=== PATIENT | male | born 1995 | race Asian ===

== ENCOUNTER 2018-12-10 18:06 | Emergency (ER) | payer OTHER ==
[~2018-12-10] VITALS: Ht 162.6 cm; Wt 76.2 kg
[2018-12-10 18:06] VITALS: BP_SYST 154
--- NOTE | 2018-12-10 18:06 | NUR ---
BROUGHT BACK TO BED #7 AND TRIAGED. REPORT GIVEN TO RORY
--- NOTE | 2018-12-10 18:10 | NUR ---
Patient to ER bed 7 for evaluation.
--- NOTE | 2018-12-10 18:20 | NUR ---
Patient to ER via triage via wheelchair for evaluation of right foot/ankle pain after being hit by forklift earlier today. Patient reports inability to stand due to pain. Patient is awake, alert and oriented in no acute distress, vital signs stable, respirations even and unlabored, skin warm and dry to touch. Awaiting evaluation by ER MD, will continue to observe and assess.
--- NOTE | 2018-12-10 18:25 | NUR ---
ER at bedside examining patient.
--- NOTE | 2018-12-10 18:45 | NUR ---
X-ray at bedside for films.
--- NOTE | 2018-12-10 19:15 | NUR ---
Dr Chaves at bedside speaking with patient/family regarding results and plan of care, questions answered by Dr Chaves.
[2018-12-10 19:45] VITALS: BP_SYST 140
[2018-12-10] MEDS ORDERED: KETOROLAC TROMETHAMINE 60 MG/2 ML VIAL IM ONE (19:45)
--- NOTE | 2018-12-10 19:45 | NUR ---
Patient given written and verbal discharge instructions and verbalizes understanding. ER MD discussed with patient the results and treatment provided. Patient in stable condition. ID arm band removed. Rx of Naprosyn given. Patient educated on pain management and to follow up with PMD. Pain Scale 0. Opportunity for questions provided and answered. Medication side effect fact sheet provided. Patient left ER in no acute distress, able to ambulate without difficulty using crutches with slow, steady gait with family at his side. No adverse reaction noted to medication.
== END 2018-12-10 19:45 | disposition home or self-care (01) ==
LOC: SED 18:06
DX: S90.31XA Contusion of right foot, initial encounter (principal); R03.0 Elevated blood-pressure reading, without diagnosis of hypertension; W24.0XXA Contact with lifting devices, not elsewhere classified, initial encounter; Y93.89 Activity, other specified; Y92.89 Other specified places as the place of occurrence of the external cause; Y99.8 Other external cause status
CPT/HCPCS: 73610; 73630; 96372; 99283; J1885